=== PATIENT | male | born 1965 | race Caucasian/White ===

== ENCOUNTER 2018-09-28 14:40 | Day surgery (SDC) | payer OTHER ==
[2018-09-28] MEDS ORDERED: EPINEPHrine 1 MG/ML INJ ONE (14:46)
[2018-09-28] MEDS ORDERED: BUPIVACAINE/EPI 0.5% 30 ML SDV ONE (14:46)
[2018-09-28] MEDS ORDERED: CHLORHEXIDINE GLUCONATE 15 ML UDL ONE (14:46)
[2018-09-28] MEDS ORDERED: LIDO/EPI 2%** Not for Epidural 20 ML MDV ONE (14:47)
[2018-09-28] MEDS ORDERED: CEFAZOLIN 2 GM/DEXTROSE/100 ML BAG IV ONE (15:42)
[2018-09-28] MEDS ORDERED: ceFAZolin 2 GM/DEXTROSE 100 ML IV ONE (15:44)
[2018-09-28] MEDS ORDERED: DEXAMETHASONE 4 MG/ML VIAL IVP ONE (15:44)
--- NOTE | 2018-09-28 15:45 | PDHPUP ---
History & Physical Update H&P update statement: This history and physical update is based on an assessment of the patient which was completed after admission or registration (within 24 hours), but prior to the surgery/procedure. H&P update: H&P reviewed & patient examined, no change in patient's condition since H&P completed
--- NOTE | 2018-09-28 16:01 | PDANEPAE ---
ANE History of Present Illness Impacted wisdom teeth, here for removal ANE Past Medical History - Cardiovascular History Hx Hypertension: No Hx Arrhythmias: No Hx Chest Pain: No Hx Coronary Artery / Peripheral Vascular Disease: Yes Hx CHF / Valvular Disease: No Hx Palpitations: No Cardiovascular History Comment: CABG X2 2012 - Pulmonary History Hx COPD: No Hx Asthma/Reactive Airway Disease: No Hx Recent Upper Respiratory Infection: No Hx Oxygen in Use at Home: No Hx Sleep Apnea: No Sleep Apnea Screening Result - Last Documented: Positive Pulmonary History Comment: CHEWS TOBACCO. HAS DRY COUGH - Neurologic History Hx Cerebrovascular Accident: No Hx Seizures: No Hx Dementia: No - Endocrine History Hx Diabetes: No - Renal History Hx Renal Disorders: No - Liver History Hx Hepatic Disorders: No - Neurological & Psychiatric Hx Hx Neurological and Psychiatric Disorders: No - Cancer History Hx Cancer: No - Congenital Disorder History Hx Congenital Disorders: No - GI History Hx Gastrointestinal Disorders: No - Other Health History Other Health History: IMPACTED WISDOM TEETH - Chronic Pain History Chronic Pain: Yes (ORAL) - Surgical History Prior Surgeries: GABG 2011. RT SHLDR SCOPE. LUMBAR LAMINECTOMY ANE Review of Systems Review of Systems: - Exercise capacity METS (RN): 4 METS ANE Patient History - Allergies Allergies/Adverse Reactions: morphine Allergy (Verified 09/27/18 15:26) NAUSEA walnut Allergy (Verified 09/27/18 15:27) ORAL SWELLING - Home Medications Home medications: home medication list seen and reviewed Home Medications: SIMVASTATIN DAILY 09/27/18 [Last Taken 09/28/18] Hydrocodone/Acetaminophen [Hydrocodon-Acetaminophen 5-325] 1 each PO 09/28/18 [ Last Taken 09/27/18] Zolpidem Tartrate 5 mg PO 09/28/18 [Last Taken 09/27/18] - NPO status NPO Since - Liquids (Date): 09/28/18 NPO Since - Liquids (Time): 13:00 NPO Since - Solids (Date): 09/28/18 NPO Since - Solids (Time): 08:00 - Anes Hx Anes Hx: no prior problems - Smoking Hx Smoking Status: Light smoker - Alcohol Use Alcohol Use: Rarely - Family Anes Hx Family Anes Hx: none ANE Labs/Vital Signs - Vital Signs Blood Pressure: 110/55 Heart Rate: 73 Respiratory Rate: 14 O2 Sat (%): 96 Height: 185.42 cm Weight: 99.79 kg ANE Physical Exam - Airway Neck exam: FROM Mallampati Score: Class 3 Mouth exam: small mouth opening (trismus) - Pulmonary Pulmonary: no respiratory distress - Cardiovascular Cardiovascular: regular rate and rhythym - ASA Status ASA Status: II ANE Anesthesia Plan Anesthesia Plan: general endotracheal anesthesia
[2018-09-28] MEDS ORDERED: MIDAZOLAM 2 MG/2 ML VIAL IVP ONE (16:03)
[2018-09-28] MEDS ORDERED: LIDOCAINE 2% 100 MG/5 ML SYR ONE (16:11)
[2018-09-28] MEDS ORDERED: fentaNYL 100 MCG/2 ML INJ ONE ×3 (16:11→17:45)
[2018-09-28] MEDS ORDERED: PROPOFOL 200 MG/20 ML VIAL ONE (16:11)
[2018-09-28] MEDS ORDERED: ROCURONIUM 50 MG/5 ML VIAL ONE (16:12)
[2018-09-28] MEDS ORDERED: HYDROCODONE/APAP 5/325 TAB PO PRN (17:20)
[2018-09-28] MEDS ORDERED: ONDANSETRON 4 MG/2 ML VIAL IVP PRN (17:20)
[2018-09-28] MEDS ORDERED: oxyCODONE IR 5 MG TAB PO PRN (17:20)
[2018-09-28] MEDS ORDERED: HYDROmorphONE/DILAUDID 2 MG/ML INJ IVP PRN (17:20)
[2018-09-28] MEDS ORDERED: PROMETHAZINE HCL 25 MG/ML INJ IVP PRN (17:20)
[2018-09-28] MEDS ORDERED: NALOXONE HCL 0.4 MG/ML INJ IVP PRN (17:20)
[2018-09-28] MEDS ORDERED: ACETAMINOPHEN 500 MG TAB PO PRN (17:20)
--- NOTE | 2018-09-28 17:22 | POSTANESTH ---
Post Anesthetic Evaluation Cardiovascular Status: Normal, Stable, Similar to Pre-Op Cond Respiratory Status: Normal, Stable, Similar to Pre-op Cond. Level of Consciousness/Mental Status: Can Participate in Eval, Alert and Oriented Pain Control: Adequate, Prn Tx Ordered Nausea/Vomiting Control: Adequate, Prn Tx Ordered Complications Possibly Related to Anesthesia: None Noted
--- NOTE | 2018-09-28 17:23 | POSTOPPROG ---
Post Op Note Date of Operation: 09/28/18 Surgeon: Nadege Kauffman Anesthesia: GET(General Endotracheal) Pre-op Diagnosis: infected teeth #17,32 Post-op Diagnosis: same Indication: Infection Procedure: Extraction #17,32 Inf/Abcess present in the surg proc area at time of surgery?: Yes Depth: Superfical (Skin SQ) EBL: Minimal Total fluids administered: 1000 mL Complications: None
[2018-09-28] MEDS: fentaNYL 100 MCG/2 ML INJ IVP PRN ×3 (17:26→17:46)
[2018-09-28] MEDS ORDERED: ACETAMINOPHEN 500 MG TAB ONE (17:35)
[2018-09-28] MEDS ORDERED: oxyCODONE IR 5 MG TAB ONE ×2 (17:36→18:31)
[2018-09-28] MEDS ORDERED: HYDROmorphONE/DILAUDID 2 MG/ML INJ ONE (17:45)
[2018-09-28 19:40] VITALS: BP 138/90
--- NOTE | 2018-10-01 06:29 | SUROPNOTE ---
[facility] Operative Report - Surgery Pre-Operative Diagnosis: Impacted teeth #17,32 with odontogenic infection Post-operative Diagnosis: Impacted teeth #17,32 with odontogenic infection Procedure: Surgical Extraction teeth #17,32 Surgeon: Nadege Kauffman DDS Server Developer: N/A Anesthesia: GETA with local anesthesia of Lidocaine 2% with 1:100k epinephrine and Marcaine 0.5% with 1:200k epinephrine Complications: None Fluids: 1000mL Crystalloid Specimens: None EBL: minimal Operative Indications: Patient reported with severe trismus and pain lower left posterior jaw. Panorex obtained and found to have infection of tooth #17 and impacted #32. Upon examination patient had active purulent drainage from sites # 17 and 32. Patient was unable to tolerate extraction of teeth under local anesthesia in outpatient clinic. Procedure: Patient was met in pre-operative holding. Questions sought and answered and consent signed. Patient marked. Patient marlys to operating suite by OR staff. Monitored deemed to be working appropriately and general anesthsia induced via orotracheal intubation. Patient eyes covered by anesthesia. Time out completed. Throat packed placed, mouth cleaned and local anesthetic given via bilateral ACE/long buccal blocks. Patient prepped and draped in [facility] sterile fashion. Bite block placed. Patient had severe trismus with paralytic. 15 blade used to make distobuccal incision to avoid lingual nerve. Reflected buccal full thickness mucoperiosteal flap exposing alveolar bone with impacted #17. Gross granulation tissue present. Removed tooth with HP/fissure bur and copious irrigation and forceps. Curetted socket well. No visualization of ACE. Irrigated socket and flap well with NS. Closed with 3-0 CG. Bite block changed sides. 15 blade used to make distobuccal incision to avoid lingual nerve. Reflected buccal full thickness mucoperiosteal flap exposing alveolar bone with impacted #17. Gross granulation tissue present. Removed tooth with forceps. Curetted socket well. No visualization of ACE. Irrigated socket and flap well with NS. Closed with 3-0 CG. Mouth cleaned, throat pack removed with suction. Bite block removed. Face cleaned and dried with NS. Patient awoke in operating suite and extubated. Transferred to PACU where he recovered uneventfully. Patient was discharged home to have a follow up in one week at [facility].
== END 2018-09-28 18:59 | disposition home or self-care (01) ==
LOC: FSGY 14:40
PROVIDERS: ATTEND Dentist General Practice
PROC: 0CTX0Z1 Resection of Lower Tooth, Multiple, Open Approach (ICD-10-PCS; principal; 2018-09-28 16:00)
DX: K04.7 Periapical abscess without sinus (principal); K01.1 Impacted teeth; R25.2 Cramp and spasm; I25.10 Atherosclerotic heart disease of native coronary artery without angina pectoris; I45.10 Unspecified right bundle-branch block; E78.5 Hyperlipidemia, unspecified; K21.9 Gastro-esophageal reflux disease without esophagitis; M17.0 Bilateral primary osteoarthritis of knee; Z95.1 Presence of aortocoronary bypass graft
CPT/HCPCS: J0171; J0690; J1100; J1170; J2001; J2250; J2704; J3010